=== PATIENT | female | born 1960 | race Caucasian/White ===

== ENCOUNTER 2017-07-03 09:44 | Outpatient (CLI) | payer BC | END 2017-07-03 09:45 | disposition home or self-care (01) | LOC: BICMAMMO 09:44 | PROVIDERS: ATTEND Family Medicine | DX: Z12.31 Encounter for screening mammogram for malignant neoplasm of breast (principal) | CPT/HCPCS: 77063; 77067 ==

== ENCOUNTER 2017-10-16 13:45 | Outpatient (CLI) | payer BC | END 2017-10-16 13:46 | disposition home or self-care (01) | LOC: BICMAMMO 13:45 | PROVIDERS: ATTEND Family Medicine | DX: Z13.820 Encounter for screening for osteoporosis (principal); Z00.00 Encounter for general adult medical examination without abnormal findings | CPT/HCPCS: 77080 ==

== ENCOUNTER 2018-07-12 19:30 | Outpatient (CLI) | payer BC | END 2018-07-12 19:31 | disposition home or self-care (01) | LOC: SLEEPLAB 19:30 | PROVIDERS: ATTEND Family Medicine | DX: G47.33 Obstructive sleep apnea (adult) (pediatric) (principal); R06.83 Snoring; I10 Essential (primary) hypertension; K21.9 Gastro-esophageal reflux disease without esophagitis; E11.9 Type 2 diabetes mellitus without complications; G47.00 Insomnia, unspecified; G47.10 Hypersomnia, unspecified; Z68.41 Body mass index [BMI] 40.0-44.9, adult | CPT/HCPCS: 95811 ==

== ENCOUNTER 2018-10-17 09:29 | Outpatient (CLI) | payer BC ==
--- NOTE | 2018-10-17 14:03 | MMO ---
Bilateral MAMMO Bilat Screen [facility]. CLINICAL HISTORY: Patient is 58 years old and is seen for screening. The patient has the following family history of breast cancer: maternal grandmother, AND BRAIN. The patient has no personal history of cancer. VIEWS: The views performed were: bilateral craniocaudal with tomosynthesis and bilateral mediolateral oblique with tomosynthesis. FILMS COMPARED: The present examination has been compared to prior imaging studies performed at [facility] on 05/24/2000 and 07/04/2005, and at [facility] on 07/02/2013, 12/03/2014, 12/06/2015, 12/08/2015 and 07/03/2017. MAMMOGRAM FINDINGS: There are scattered fibroglandular densities. Finding 1: There are stable benign appearing calcifications seen in both breasts. Finding 2: There are stable focal asymmetries seen in both breasts. There are no suspicious masses, suspicious calcifications, or new areas of architectural distortion. IMPRESSION: THERE IS NO MAMMOGRAPHIC EVIDENCE OF MALIGNANCY. A ROUTINE FOLLOW-UP MAMMOGRAM IN 1 YEAR IS RECOMMENDED. THE RESULTS OF THIS EXAM WERE SENT TO THE PATIENT. ACR BI-RADS Category 2 - Benign finding MAMMOGRAPHY NOTE: 1. A negative mammogram report should not delay a biopsy if a dominant of clinically suspicious mass is present. 2. Approximately 10% to 15% of breast cancers are not detected by mammography. 3. Adenosis and dense breasts may obscure an underlying neoplasm.
== END 2018-10-17 09:30 | disposition home or self-care (01) ==
LOC: BICMAMMO 09:29
PROVIDERS: ATTEND Family Medicine
DX: Z12.31 Encounter for screening mammogram for malignant neoplasm of breast (principal); Z80.3 Family history of malignant neoplasm of breast
CPT/HCPCS: 77063; 77067

== ENCOUNTER 2019-02-12 09:03 | Outpatient (CLI) | payer BC ==
--- NOTE | 2019-02-12 10:28 | MRI ---
MRI LUMBAR SPINE NONCONTRAST: HISTORY: Low back pain. COMPARISON: 05/04/2017. FINDINGS: Stable intrinsic T1 and T2 hyperintensity at T12, compatible with a vertebral body hemangioma. Verteb ral body height is maintained. There is no fracture. No significant STIR hyperintensity to suggest vertebral body edema or ligamentous injury. Appropriate signal intensity of the paraspinal muscles. Appropriate signal intensity visualized solid organs line conus medullaris terminates at the mid L1 level. T12-L1:No significant central canal stenosis or significant neural foraminal narrowing. L1-L2:No significant central canal stenosis or significant neural foraminal narrowing. L2-L3: Minimal flattening of the ventral thecal sac due to disc material. Minimal central canal steno sis. Bilaterally, neural foramina are patent. L3-L4:Desiccation with mild loss of disc space height. Broad-based disc bulge, ligamentum flavum thic [place] and facet hypertrophy result in mild to moderate central canal stenosis. Bilaterally, neural foramina are patent. There is a posterior left synovial cyst measuring 0.5 cm. This is of no clinical significance. L4-L5:2.1 mm of anterolisthesis of L4 upon L5. Desiccation with mild loss of disc space height. Broad -based disc bulge, posterior midline 4 mm synovial cyst, ligamentum flavum thickening and facet hypertrophy result in moderate to severe central canal stenosis. There is fluid in the right facet alysa int. Mild right foraminal narrowing. Left neural foramen is patent. L5-S1:Desiccation with mild loss of disc space height. Minimal central disc protrusion. Disc material abuts bilateral traversing S1 nerve roots. Significant obscuration. Right neural foramen is patent. Moderate left neural foraminal narrowing due to disc material, unchanged. IMPRESSION: 1. Multilevel degenerative changes of the lumbar spine as detailed above. Moderate to severe central canal stenosis at L4-L5, similar to the previous examination. 2. Stable left neural foraminal narrowing at L5-S1. Transcribed Date/Time: 02/12/2019 10:41 AM
== END 2019-02-12 09:04 | disposition home or self-care (01) ==
LOC: BICMRI 09:03
PROVIDERS: ATTEND Family Medicine
DX: M54.5 Low back pain (principal); M47.816 Spondylosis without myelopathy or radiculopathy, lumbar region; M48.07 Spinal stenosis, lumbosacral region; M48.061 Spinal stenosis, lumbar region without neurogenic claudication
CPT/HCPCS: 72148

== ENCOUNTER 2019-02-21 14:13 | Outpatient (CLI) | payer BC ==
--- NOTE | 2019-02-21 15:49 | MRI ---
MRI OF THE RIGHT HIP WITHOUT IV CONTRAST: INDICATION: Low back pain and right hip pain over the last year. COMPARISON: No CT or MR comparisons are available. No radiographic comparisons are available.. FINDINGS: There is moderate osteoarthrosis involving the right hip joint with scattered subchondral cystlike ab normalities involving the right femoral head and right acetabulum. Prominent area of subchondral edema involving the anterior superior right acetabulum. No definite visible fracture is noted. No steven nt effusion is noted. No iliopsoas bursitis is noted. There is mild tendinosis of the right gluteus minimus and medius tendons with mild trochanteric bursitis. There are nonspecific mildly enlarged lym ph nodes present along the right common femoral vascular vessels measuring 9.1 cm. A few shotty appearing lymph nodes are seen within the right inguinal region. Visualized sciatic nerve and right h amstring origin appears within normal limits. The rectus femoris origin appears within normal limits. No large para labral cyst is noted. There is a subcutaneous fluid collection overlying the po sterolateral left hip measuring 11.5 x 4 cm on the whole pelvic STIR images. There is susceptibility artifact involving the left hip consistent with left hip prosthesis. IMPRESSION: 1. Moderate osteoarthrosis of the right hip. 2. Prominent subcutaneous fluid collection overlying left posterior lateral aspect of the hip joint i s nonspecific. This may reflect a periprosthetic postoperative fluid collection. If there is concern for possible infection further evaluation with an MRI of the left hip with and without contr ast may be helpful for additional characterization. 3. Mild tendinosis of the right gluteus minimus and medius tendon with mild trochanteric bursitis. 4. Nonspecific enlarged lymph node of the right common femoral vessels. Transcribed Date/Time: 02/21/2019 4:00 PM
== END 2019-02-21 14:14 | disposition home or self-care (01) ==
LOC: BICMRI 14:13
PROVIDERS: ATTEND Family Medicine
DX: M25.551 Pain in right hip (principal); M16.11 Unilateral primary osteoarthritis, right hip; M25.451 Effusion, right hip; M67.853 Other specified disorders of tendon, right hip; R59.0 Localized enlarged lymph nodes

== ENCOUNTER 2019-04-10 07:44 | Outpatient (CLI) | payer BC ==
--- NOTE | 2019-04-10 08:35 | ULT ---
US Abdominal: 04/10/2019 12:00 AM CLINICAL HISTORY: Epigastric abdominal pain. STUDY: Complete abdominal ultrasound COMPARISON: None. FINDINGS: Liver: Size: Normal. Echogenicity: Normal. Contour: Smooth. Mass: None. Common bile duct: 3 mm Gallbladder: Normal. Pancreas: Head, body, and tail appear normal. Inferior vena cava: Normal in caliber Aorta: Normal in caliber Spleen: No focal lesions. Spleen measuring 11.7 cm in length. Right kidney: No pelvicalyceal dilatation. Right kidney measuring 11.1 cm in length. Left kidney: No pelvicalyceal dilatation. Left kidney measuring 11.1 cm in length. IMPRESSION: Unremarkable exam.
== END 2019-04-10 07:45 | disposition home or self-care (01) ==
LOC: ULT 07:44
PROVIDERS: ATTEND Family Medicine
DX: R10.13 Epigastric pain (principal)
CPT/HCPCS: 76700

== ENCOUNTER 2019-04-30 12:48 | Outpatient (CLI) | payer BC ==
--- NOTE | 2019-04-30 15:40 | NM ---
NUCLEAR MEDICINE HIDA SCAN WITH EF: HISTORY: Epigastric pain. COMPARISON: None. TECHNIQUE: Patient was ministered 5.3 mCi of technetium 99m mebrofenin intravenously. Ejection fraction was dete rmined after the patient was administered 8 ounces of Ensure orally 1 hour post injection of radiopharmaceutical. FINDINGS: There is uptake of the radiotracer by the hepatic parenchyma. Localization of the radiotracer in the gallbladder as early as 10 minutes. Passage of radiotracer from the common bile duct and the small bowel loops. Gallbladder ejection fraction: 83%. IMPRESSION:: 1. No scintigraphic evidence of acute cholecystitis. 2. 83% gallbladder ejection fraction. Transcribed Date/Time: 04/30/2019 3:44 PM
== END 2019-04-30 12:49 | disposition home or self-care (01) ==
LOC: NM 12:48
PROVIDERS: ATTEND Family Medicine
DX: R10.13 Epigastric pain (principal)
CPT/HCPCS: 78227; A9537

== ENCOUNTER 2020-05-11 15:35 | Outpatient (CLI) | payer BC ==
--- NOTE | 2020-05-11 15:56 | RAD ---
EXAM: Lumbar spine: 2 views INDICATIONS: Sacroiliitis. Spondylosis. COMPARISON: None. FINDINGS: Rudimentary ribs will be labeled T12. Lumbar vertebral maintain normal height. Grade 1 anterolisthesis at L4-5. Loss of disc space at L4-5 and L5-S1. Mild degenerative spurring. Fa cet hypertrophy. IMPRESSION: Grade 1 spondylolysis at L4-5. Degenerative changes as described.
== END 2020-05-11 15:36 | disposition home or self-care (01) ==
LOC: BICRAD 15:35
PROVIDERS: ATTEND Family Medicine
DX: M47.816 Spondylosis without myelopathy or radiculopathy, lumbar region (principal); M46.1 Sacroiliitis, not elsewhere classified; M43.06 Spondylolysis, lumbar region
CPT/HCPCS: 72100

== ENCOUNTER 2020-07-12 10:23 | Outpatient (CLI) | payer BC ==
[2020-07-12 18:28] LABS: SARS-CoV-2 PCR by NAA Not Detected (NotDetected)
== END 2020-07-12 10:24 | disposition home or self-care (01) ==
LOC: LABBT 10:23
PROVIDERS: ATTEND Family Medicine
DX: Z01.812 Encounter for preprocedural laboratory examination (principal); M48.062 Spinal stenosis, lumbar region with neurogenic claudication; G89.4 Chronic pain syndrome; M51.16 Intervertebral disc disorders with radiculopathy, lumbar region; Z20.822 Contact with and (suspected) exposure to COVID-19
CPT/HCPCS: 87635; U0003; U0005

== ENCOUNTER 2020-07-16 12:14 | Day surgery (SDC) | payer BC ==
[2020-07-14 11:31] VITALS: BMI 44.4
[~2020-07-16 12:14] MED LIST: Lidocaine 1% PF 5 ML VIAL ONE; PROPOFOL 200 MG/20 ML VIAL ONE
--- NOTE | 2020-07-16 14:28 | MRI ---
MR the lumbar spine without contrast: 07/16/2020 History: Chronic pain, radiculopathy, right greater than left COMPARISON: 02/12/2019 TECHNIQUE: Multiplanar multisequence MR images were obtained of lumbar spine without IV contrast FINDINGS: On the basis of 5 lumbar type vertebral bodies, conus medullaris terminates at theL1-2 level. There is fluid signal intensity within the bilateral facet joints at L4-5 and within the right facet joint at L3-4. T12-L1:Mild bilateral facet hypertrophy. There is disc space narrowing with no significant central ca nal or neural foraminal stenosis. L1-2:Mild bilateral facet hypertrophy with no significant central canal or neural foraminal stenosis. L2-3:Mild bilateral facet hypertrophy. No significant central canal or neural foraminal stenosis. L3-4:There is disc desiccation and mild disc bulge with mild disc space narrowing and mild central ca nal stenosis. Moderate bilateral facet hypertrophy and hypertrophy of the ligamentum flavum, right greater than left. No significant neural foraminal stenosis. L4-5:There is prominent bilateral facet hypertrophy. There is disc space narrowing with disc desiccat ion and disc bulge causing a severe degree of central canal stenosis, worsened when compared to prior imaging. No significant neural foraminal stenosis. L5-S1:Bilateral facet hypertrophy noted, left greater than right. There is disc space narrowing and d isc desiccation. There is no significant central canal or right neural foraminal stenosis. Mild stable left neural foraminal stenosis. Image retroperitoneal structures demonstrateno acute findings. There is an adrenal mass on the right measuring 2.1 cm in AP dimension, nonspecific and unchanged when compared to a CT examination of the chest performed 02/21/2018. IMPRESSION: Multilevel degenerative change within the lumbar spine, most prominent at the L4-5 level, worsened wh en compared to the prior examination.
[2020-07-16] MEDS ORDERED: Fentanyl 100 MCG/2 ML VIAL ONE (14:45)
== END 2020-07-16 18:05 | disposition home or self-care (01) ==
LOC: SDC/OP 12:14
PROVIDERS: ATTEND Family Medicine
DX: M47.26 Other spondylosis with radiculopathy, lumbar region (principal); M48.061 Spinal stenosis, lumbar region without neurogenic claudication; K59.00 Constipation, unspecified; Z79.4 Long term (current) use of insulin; Z79.82 Long term (current) use of aspirin; Z79.899 Other long term (current) drug therapy; Z91.011 Allergy to milk products
CPT/HCPCS: 72148; J2704; J3010

== ENCOUNTER 2021-04-06 11:19 | Outpatient (CLI) | payer BC | END 2021-04-06 11:20 | disposition home or self-care (01) | LOC: BICMAMMO 11:19 | PROVIDERS: ATTEND Family Medicine | DX: Z12.31 Encounter for screening mammogram for malignant neoplasm of breast (principal); Z91.89 Other specified personal risk factors, not elsewhere classified; Z80.3 Family history of malignant neoplasm of breast; Z80.8 Family history of malignant neoplasm of other organs or systems | CPT/HCPCS: 77063; 77067 ==

== ENCOUNTER 2021-07-19 10:49 | Outpatient (CLI) | payer BC | END 2021-07-19 10:50 | disposition home or self-care (01) | LOC: DTY/OP 10:49 | PROVIDERS: ATTEND Family Medicine | DX: E11.65 Type 2 diabetes mellitus with hyperglycemia (principal); Z79.4 Long term (current) use of insulin | CPT/HCPCS: 97802 ==

== ENCOUNTER 2022-05-10 08:39 | Outpatient (CLI) | payer BC | END 2022-05-10 08:40 | disposition home or self-care (01) | LOC: BICMAMMO 08:39 | PROVIDERS: ATTEND Family Medicine | DX: Z12.31 Encounter for screening mammogram for malignant neoplasm of breast (principal); Z80.3 Family history of malignant neoplasm of breast | CPT/HCPCS: 77063; 77067 ==

== ENCOUNTER 2022-09-27 10:19 | Outpatient (CLI) | payer BC | END 2022-09-27 10:20 | disposition home or self-care (01) | LOC: TBSIIMAG 10:19 | PROVIDERS: ATTEND Specialist | DX: M16.12 Unilateral primary osteoarthritis, left hip (principal); T84.84XD Pain due to internal orthopedic prosthetic devices, implants and grafts, subsequent encounter; Z96.643 Presence of artificial hip joint, bilateral ==

== ENCOUNTER 2022-10-12 09:39 | Outpatient (CLI) | payer BC | END 2022-10-12 09:40 | disposition home or self-care (01) | LOC: NM 09:39 | PROVIDERS: ATTEND Specialist | DX: T84.84XA Pain due to internal orthopedic prosthetic devices, implants and grafts, initial encounter (principal); M16.11 Unilateral primary osteoarthritis, right hip; Z96.641 Presence of right artificial hip joint | CPT/HCPCS: 78315; A9503 ==

== ENCOUNTER 2023-05-14 09:16 | Outpatient (CLI) | payer MEDICARE, BC | END 2023-05-14 09:17 | disposition home or self-care (01) | LOC: BICMAMMO 09:16 | PROVIDERS: ATTEND Family Medicine | DX: Z12.31 Encounter for screening mammogram for malignant neoplasm of breast (principal); Z13.820 Encounter for screening for osteoporosis; Z91.89 Other specified personal risk factors, not elsewhere classified; Z80.3 Family history of malignant neoplasm of breast; Z78.0 Asymptomatic menopausal state | CPT/HCPCS: 77063; 77067; 77080 ==

== ENCOUNTER 2024-08-01 10:54 | Outpatient (CLI) | payer MEDICARE | END 2024-08-01 10:55 | disposition home or self-care (01) | LOC: BICMAMMO 10:54 | PROVIDERS: ATTEND Family Medicine | DX: Z12.31 Encounter for screening mammogram for malignant neoplasm of breast (principal); Z80.3 Family history of malignant neoplasm of breast; Z91.89 Other specified personal risk factors, not elsewhere classified | CPT/HCPCS: 77063; 77067 ==

== ENCOUNTER 2024-08-21 09:44 | Day surgery (SDC) | payer MEDICARE ==
[2024-08-20 10:38] VITALS: BMI 41.1
[2024-08-21] MEDS ORDERED: PROPOFOL 40 ML ONE (11:04)
[2024-08-21] MEDS ORDERED: Lidocaine 1% PF 5 ML VIAL ONE (11:06)
== END 2024-08-21 12:45 | disposition home or self-care (01) ==
LOC: SDC 09:44
PROVIDERS: ATTEND Internal Medicine Gastroenterology
PROC: 0DBK8ZZ Excision of Ascending Colon, Via Natural or Artificial Opening Endoscopic (ICD-10-PCS; principal; 2024-08-21)
PROC: 0DBH8ZZ Excision of Cecum, Via Natural or Artificial Opening Endoscopic (ICD-10-PCS; 2024-08-21)
DX: Z12.11 Encounter for screening for malignant neoplasm of colon (principal); K63.5 Polyp of colon; K64.8 Other hemorrhoids; I12.9 Hypertensive chronic kidney disease with stage 1 through stage 4 chronic kidney disease, or unspecified chronic kidney disease; N18.9 Chronic kidney disease, unspecified; E11.22 Type 2 diabetes mellitus with diabetic chronic kidney disease; E78.00 Pure hypercholesterolemia, unspecified; F41.9 Anxiety disorder, unspecified; K21.9 Gastro-esophageal reflux disease without esophagitis; Z96.643 Presence of artificial hip joint, bilateral; Z90.710 Acquired absence of both cervix and uterus; Z90.49 Acquired absence of other specified parts of digestive tract; Z90.79 Acquired absence of other genital organ(s); Z90.722 Acquired absence of ovaries, bilateral; Z91.011 Allergy to milk products; Z91.048 Other nonmedicinal substance allergy status; Z79.1 Long term (current) use of non-steroidal anti-inflammatories (NSAID); Z79.2 Long term (current) use of antibiotics; Z79.51 Long term (current) use of inhaled steroids; Z79.84 Long term (current) use of oral hypoglycemic drugs; Z79.4 Long term (current) use of insulin; Z79.899 Other long term (current) drug therapy
CPT/HCPCS: 45385; 82962; J2704; 36416; 88305

== ENCOUNTER 2025-05-20 11:41 | Outpatient (CLI) | payer MEDICARE | END 2025-05-20 11:42 | disposition home or self-care (01) | LOC: BICMAMMO 11:41 | PROVIDERS: ATTEND Family Medicine | DX: M81.0 Age-related osteoporosis without current pathological fracture (principal); M85.839 Other specified disorders of bone density and structure, unspecified forearm | CPT/HCPCS: 77080 ==